=== PATIENT | female | born 1995 | race Two or more races ===

== ENCOUNTER → 2018-05-29 | Outpatient (REF) | payer OTHER | LOC: M LAB REF 16:28 | PROVIDERS: ATTEND Nurse Practitioner Women's Health | DX: Z34.03 Encounter for supervision of normal first pregnancy, third trimester (principal) ==

== ENCOUNTER → 2019-05-25 | Outpatient (CLI) | payer OTHER ==
--- NOTE | 2019-05-26 06:51 | REP ---
Clinical: Anatomical evaluation. Comparison: None . Findings: Examination demonstrates a single live intrauterine in variable presentation. motion is identified by technologist. Placenta is noted posterior and grade I without evidence for placenta previa or abruption. Amniotic fluid volume is normal. Cervix measures 4.4 cm in length and appears closed. No evidence for nuchal cord. Gestational age by current measurements 18 weeks 1 day with KRISTIAN 10/25/2019 . FHR equals 140 beats per minute. BPD 4.1 cm 18 weeks 3 days HC 15.5 cm 18 weeks 3 days AC 12.4 cm 18 weeks 0 days FL 2.7 cm 18 weeks 0 days HL 2.5 cm 18 weeks 0 days HC/AC ratio 1.24 Estimated weight 224 grams ( 46 percentile). Anatomical assessment demonstrates normal structures including cranium, choroid plexus, cavum, cerebellum/posterior fossa, facial features, lungs, four-chamber heart/ventricular outflow tracts, diaphragm, stomach, cord insertion/three-vessel cord, kidneys/bladder, spine, and extremities. Impression: Single live intrauterine in variable presentation demonstrating appropriate interval growth. Anatomical assessment is complete and normal.
== END ==
LOC: M WHC 14:29
PROVIDERS: ATTEND Advanced Practice Midwife
DX: Z34.92 Encounter for supervision of normal pregnancy, unspecified, second trimester (principal)

== ENCOUNTER → 2019-07-31 | Outpatient (REF) | payer OTHER ==
[2019-07-31 13:54] LABS: HEMATOCRIT 35.2 % (36.0-47.0); HEMOGLOBIN 11.6 g/dl (12.0-15.5); MEAN CORPUSCULAR HEMOGLOBIN 31.1 pg (27.0-33.0); MEAN CORPUSCULAR VOLUME 94.4 fl (80.0-96.0); PLATELET COUNT, AUTOMATED 170 10^3/uL (150-450); RED BLOOD COUNT 3.73 10^6/uL (4.00-5.40); WHITE BLOOD COUNT 11.7 10^3/uL (4.0-10.0)
[2019-07-31 14:46] LABS: HEPATITIS B SURFACE ANTIGEN NEGATIVE (NEGATIVE); HIV 1&2 SCREEN CENTAUR NEGATIVE (NEGATIVE)
[2019-07-31 15:52] LABS: CHLAMYDIA DNA AMPLIFICATION NEGATIVE (NEGATIVE); GC DNA AMPLIFICATION NEGATIVE (NEGATIVE)
== END ==
LOC: M PLALAB 10:36
PROVIDERS: ATTEND Specialist
DX: Z36.89 Encounter for other specified antenatal screening (principal)

== ENCOUNTER → 2019-08-12 | Outpatient (REF) | payer OTHER | LOC: M PLALAB 13:17 | PROVIDERS: ATTEND Specialist | DX: Z34.83 Encounter for supervision of other normal pregnancy, third trimester (principal) ==

== ENCOUNTER 2019-10-06 13:09 | Outpatient (CLI) | payer OTHER ==
[~2019-10-06] VITALS: Ht 152.4 cm; Wt 98.5 kg
[2019-10-06] MEDS ORDERED: PRENTAB9 PO (13:29)
[2019-10-06 13:37] VITALS: BP 110/60
--- NOTE | 2019-10-06 13:56 | IPNPDOC ---
Obstetrical Progress Note Date of Service Oct 06, 2019 Subjective 24-year-old 2, para 1 at 37 weeks, presents with complaints of contractions. She reports contractions approximately 4-6 minutes for last 2-3 hours. She states they're more consistent machine was round less at rest. Active movements. Denies any vaginal bleeding, leakage fluid. Her course has been unremarkable Objective Vital Signs Date Time Temp Pulse Resp B/P (MAP) Pulse Ox O2 Delivery O2 Flow Rate FiO2 10/06/19 13:38 98.1 20 99 Room Air 10/06/19 13:37 97 110/60 (77) Assessment Variability: Moderate Accelerations: Positive Heart Rate Tracing: Category I Sterile Vaginal Examination Dilation: Fingertip Effacement (%): 30% Station: -3 Cervical Consistency: Medium Cervical Position: Posterior Postion/Presentation: Cephalic presentation Assessment and Plan Age: 24 : 2 Livin Status: Reassuring Additional Comments Not in active labor. Reassuring status. Home with labor precautions and kick count instructions URSZULA ZIMMERMAN MD. Oct 06, 2019 13:56
[2019-10-06 15:48] VITALS: BP 124/70
== END 2019-10-06 16:00 | disposition home or self-care (01) ==
LOC: M LDO 13:09
PROVIDERS: ATTEND Obstetrics & Gynecology
DX: O26.893 Other specified pregnancy related conditions, third trimester (principal); Z3A.37 37 weeks gestation of pregnancy
CPT/HCPCS: 59025; G0378; G0463

== ENCOUNTER 2019-10-21 21:50 | Inpatient (IN) | payer OTHER ==
[~2019-10-21 21:50] MED LIST: PRENTAB9 PO
[2019-10-21] MEDS ORDERED: FENTANYL 2MCG/ML ROPIVACAINE 0.2% IN 0.9% NACL 100ML IVBAG ONE (23:50)
[2019-10-21] MEDS ORDERED: FENTANYL 2MCG/ML ROPIVACAINE 0.2% IN 0.9% NACL 100ML IVBAG As Ordered ONE (23:50)
[2019-10-22] MEDS ORDERED: ePHEDrine SULFATE 25 MG/5 ML(5MG/ML) SYRINGE As Ordered ONE (02:00)
[2019-10-22] MEDS ORDERED: OXYTOCIN 30 UNITS IN 0.9% NaCl 500ML IV BAG (J2590) ONE (02:00)
[2019-10-22] MEDS ORDERED: ePHEDrine SULFATE 25 MG/5 ML(5MG/ML) SYRINGE ONE (02:00)
[2019-10-22] MEDS ORDERED: OXYTOCIN 30 UNITS IN 0.9% NaCl 500ML IV BAG (J2590) As Ordered ONE (03:00)
[2019-10-22] MEDS ORDERED: ACETAMINOPHEN 500 MG TAB As Ordered ONE (12:14)
[2019-10-22] MEDS ORDERED: ACETAMINOPHEN 500 MG TAB ONE (12:14)
[2019-10-22] MEDS ORDERED: IBUPROFEN 600MG TAB ONE (12:14)
[2019-10-22] MEDS ORDERED: IBUPROFEN 600MG TAB As Ordered ONE (15:44)
[2019-10-22] MEDS ORDERED: IBUPROFEN 800 MG TAB ONE (23:50)
[2019-10-22] MEDS ORDERED: IBUPROFEN 800 MG TAB As Ordered ONE (23:50)
[2019-10-23] MEDS ORDERED: IBUPROFEN 800 MG TAB ONE ×2 (08:04→14:12)
[2019-10-23] MEDS ORDERED: IBUPROFEN 800 MG TAB As Ordered ONE ×2 (08:04→14:12)
[2019-12-19 09:17] LABS: HEMATOCRIT 36.9 % (36.0-47.0); HEMOGLOBIN 12.4 g/dl (12.0-15.5); MEAN CORPUSCULAR HEMOGLOBIN 29.8 pg (27.0-33.0); MEAN CORPUSCULAR HGB CONC 33.6 g/dl (32.0-36.5); MEAN CORPUSCULAR VOLUME 88.7 fl (80.0-96.0); PLATELET COUNT, AUTOMATED 151 10^3/uL (150-450); RED BLOOD COUNT 4.16 10^6/uL (4.00-5.40)
== END 2019-10-23 07:30 | disposition home or self-care (01) | DRG 807 ==
LOC: M LDO 21:50 → M LDI 22:40
PROVIDERS: ADMIT Obstetrics & Gynecology; ATTEND Advanced Practice Midwife
PROC: 10E0XZZ Delivery of Products of Conception, External Approach (ICD-10-PCS; principal; 2019-10-22)
PROC: 0HQ9XZZ Repair Perineum Skin, External Approach (ICD-10-PCS; 2019-10-22)
DX: O70.0 First degree perineal laceration during delivery (principal); Z37.0 Single live birth; Z3A.39 39 weeks gestation of pregnancy